=== PATIENT | female | born 1970 | race Asian ===

== ENCOUNTER 2021-03-07 10:58 | Emergency (ER) | payer BC ==
[~2021-03-07] VITALS: Ht 152.4 cm; Wt 66.7 kg
[2021-03-07] MEDS ORDERED: ULTRAM 50MG TAB50 MG PO (13:36)
[2021-03-07 13:47] VITALS: BP 124/60
== END 2021-03-07 13:48 | disposition home or self-care (01) ==
LOC: ER 10:58
DX: M25.561 Pain in right knee (principal); J45.909 Unspecified asthma, uncomplicated